=== PATIENT | male | born 1945 | race Caucasian/White ===

== ENCOUNTER 2020-08-04 08:54 | Inpatient (IN) | payer MEDICAID ==
[~2020-08-04] VITALS: Ht 165.1 cm; Wt 78.5 kg
[~2020-08-04 08:54] MED LIST: ALBU05 IH; ATOR40TA70 MT; FINA5TAB11 MT; FLUT1DIS3 IH; GLIP10TA10 PO; LEVO25TA7 MT; LOSA50TA41 MT; METF-416 PO; MOME13HF INH; TAMS0.4C31 PO
[2020-08-04] MEDS ORDERED: METHYLPREDNISOLONE SOD SUCC 125 MG/2 ML VIAL IV STA (09:09)
[2020-08-04] MEDS ORDERED: ALBUTEROL (0.083%) 2.5MG/3ML NEB HHN STA (09:09)
[2020-08-04] MEDS ORDERED: IPRATROPIUM BROMIDE (0.02%) 0.5MG/2.5ML NEB HHN STA (09:09)
[2020-08-04 09:31] LABS: BASOPHILS % 0.8 % (0.0-2.0); EOSINOPHILS % 9.9 % (0.0-5.0); HEMATOCRIT. 37.4 % (42.0-52.0); HEMOGLOBIN. 12.6 g/dL (14.0-18.0); MEAN CORPUSCULAR VOLUME 82.6 fL (80.0-94.0); MEAN PLATELET VOLUME 8.2 fl (7.4-10.4); MONOCYTES % 8.4 % (2.0-8.0); NEUTROPHILS % 41.9 % (40.0-76.0); PLATELET 169 x1000/uL (130-400); RED BLOOD CELL COUNT 4.52 mill/uL (4.7-6.1); RED CELL DISTRIBUTION WIDTH 14.9 % (11.6-14.6)
[2020-08-04 09:39] LABS: CHLORIDE 104 mEq/L (98-107)
[2020-08-04] MEDS ORDERED: MAGNESIUM 2 G PREMIX 50 ML IV STA (10:31)
[2020-08-04] MEDS ORDERED: LORAZEPAM 2MG/ML CPJ IV PRN (12:45)
[2020-08-04] MEDS ORDERED: CLONIDINE 0.1MG TABLET PO PRN (12:45)
[2020-08-04] MEDS ORDERED: LEVOTHYROXINE SODIUM 25MCG TABLET PO SCH (12:45)
[2020-08-04] MEDS ORDERED: ATORVASTATIN CALCIUM 40MG TABLET PO SCH (12:45)
[2020-08-04] MEDS ORDERED: HYDROCODONE/ACETAMINOPHEN 5/325MG TABLET PO PRN (12:45)
[2020-08-04] MEDS ORDERED: ACETAMINOPHEN 325MG TABLET PO PRN (12:45)
[2020-08-04] MEDS ORDERED: DOCUSATE SODIUM 100MG CAPSULE PO PRN (12:45)
[2020-08-04] MEDS ORDERED: IPRATROPIUM/ALBUTEROL 0.5-3(2.5)MG/3ML NEB HHN PRN (12:45)
[2020-08-04] MEDS ORDERED: GLIPIZIDE 10MG TABLET PO SCH (12:45)
[2020-08-04] MEDS ORDERED: MAGNESIUM/ALUMINUM HYDROXIDE/SIMETHICONE 30ML UDC PO PRN (12:45)
[2020-08-04] MEDS ORDERED: HYDROMORPHONE HCL/PF 2MG/ML CPJ IV PRN (12:45)
[2020-08-04] MEDS ORDERED: ONDANSETRON HCL 4MG/2ML INJ IV PRN (12:45)
[2020-08-04] MEDS: FINASTERIDE 5MG TABLET PO SCH (13:33)
[2020-08-04] MEDS: METHYLPREDNISOLONE SOD SUCC 40 MG/ML VIAL IV SCH ×2 (15:54→22:20)
[2020-08-04] MEDS: ENOXAPARIN 40MG/0.4ML SYR SUBCUT SCH (15:54)
[2020-08-04 16:00] VITALS: BP 161/77
[2020-08-04] MEDS: LOSARTAN POTASSIUM 50 MG TABLET PO SCH (16:04)
[2020-08-04 20:00] VITALS: BP 143/63
[2020-08-04] MEDS ORDERED: DEXTROSE 50% WATER 50ML SYRINGE IV PRN (20:15)
[2020-08-04] MEDS: BLOOD SUGAR DIAGNOSTIC STRIP TEST SCH (20:33)
[2020-08-04] MEDS: GUAIFENESIN 200MG/10ML SUGAR FREE UDC PO PRN (20:52)
[2020-08-04] MEDS: ATORVASTATIN CALCIUM 40MG TABLET PO SCH (20:52)
[2020-08-04] MEDS: TAMSULOSIN HCL 0.4MG SR CAPSULE PO SCH (20:53)
[2020-08-04] MEDS: INSULIN LISPRO 100 UNITS/ML SUBCUT SCH (20:59)
[2020-08-05] VITALS: BP 146/62
[2020-08-05] MEDS: IPRATROPIUM/ALBUTEROL 0.5-3(2.5)MG/3ML NEB HHN SCH ×5 (03:34→20:10)
[2020-08-05 04:00] VITALS: BP 125/58
[2020-08-05] MEDS: GUAIFENESIN 200MG/10ML SUGAR FREE UDC PO PRN (04:25)
[2020-08-05] MEDS: METHYLPREDNISOLONE SOD SUCC 40 MG/ML VIAL IV SCH ×3 (05:39→21:44)
[2020-08-05] MEDS: BLOOD SUGAR DIAGNOSTIC STRIP TEST SCH ×4 (06:14→20:36)
[2020-08-05 06:18] LABS: CHLORIDE 105 mEq/L (98-107)
[2020-08-05 06:19] LABS: BASOPHILS % 0.1 % (0.0-2.0); HEMATOCRIT. 36.2 % (42.0-52.0); HEMOGLOBIN. 11.8 g/dL (14.0-18.0); LYMPHOCYTES % 14.9 % (20.0-50.0); MEAN CORPUSCULAR HEMOGLOBIN 27.6 pg (28.0-32.0); MEAN CORPUSCULAR VOLUME 84.8 fL (80.0-94.0); MEAN PLATELET VOLUME 9.1 fl (7.4-10.4); MONOCYTES % 1.4 % (2.0-8.0); NEUTROPHILS % 83.6 % (40.0-76.0); PLATELET 174 x1000/uL (130-400); RED BLOOD CELL COUNT 4.27 mill/uL (4.7-6.1); RED CELL DISTRIBUTION WIDTH 15.1 % (11.6-14.6)
[2020-08-05] MEDS: GLIPIZIDE 10MG TABLET PO SCH (06:22)
[2020-08-05] MEDS: LEVOTHYROXINE SODIUM 25MCG TABLET PO SCH (06:22)
[2020-08-05 08:00] VITALS: BP 150/79
[2020-08-05] MEDS: FINASTERIDE 5MG TABLET PO SCH (08:39)
[2020-08-05] MEDS: ASPIRIN 81MG EC TABLET PO SCH (08:39)
[2020-08-05] MEDS: LOSARTAN POTASSIUM 50 MG TABLET PO SCH (08:39)
[2020-08-05] MEDS: ENOXAPARIN 40MG/0.4ML SYR SUBCUT SCH (08:40)
[2020-08-05] MEDS: INSULIN LISPRO 100 UNITS/ML SUBCUT SCH ×4 (08:41→20:35)
[2020-08-05 12:00] VITALS: BP 142/71
[2020-08-05 16:00] VITALS: BP 118/54
[2020-08-05 20:00] VITALS: BP 122/68
[2020-08-05] MEDS: GUAIFENESIN 600MG ER TABLET PO SCH (20:33)
[2020-08-05] MEDS: TAMSULOSIN HCL 0.4MG SR CAPSULE PO SCH (20:34)
[2020-08-05] MEDS: ATORVASTATIN CALCIUM 40MG TABLET PO SCH (20:34)
[2020-08-06] VITALS: BP 131/50
[2020-08-06] MEDS: IPRATROPIUM/ALBUTEROL 0.5-3(2.5)MG/3ML NEB HHN SCH ×3 (03:08→14:11)
[2020-08-06 04:00] VITALS: BP 150/62
[2020-08-06] MEDS: METHYLPREDNISOLONE SOD SUCC 40 MG/ML VIAL IV SCH ×2 (06:01→13:14)
[2020-08-06] MEDS: GLIPIZIDE 10MG TABLET PO SCH (06:02)
[2020-08-06] MEDS: LEVOTHYROXINE SODIUM 25MCG TABLET PO SCH (06:02)
[2020-08-06] MEDS: BLOOD SUGAR DIAGNOSTIC STRIP TEST SCH ×2 (06:34→11:45)
[2020-08-06] MEDS: INSULIN LISPRO 100 UNITS/ML SUBCUT SCH ×2 (06:42→13:08)
[2020-08-06 08:00] VITALS: BP 125/65
[2020-08-06] MEDS: FINASTERIDE 5MG TABLET PO SCH (09:12)
[2020-08-06] MEDS: ASPIRIN 81MG EC TABLET PO SCH (09:12)
[2020-08-06] MEDS: LOSARTAN POTASSIUM 50 MG TABLET PO SCH (09:12)
[2020-08-06] MEDS: GUAIFENESIN 600MG ER TABLET PO SCH (09:12)
[2020-08-06] MEDS: ENOXAPARIN 40MG/0.4ML SYR SUBCUT SCH (09:13)
[2020-08-06 12:00] VITALS: BP 131/68
[2020-08-06 14:14] VITALS: BP 131/68
== END 2020-08-06 15:25 | disposition home or self-care (01) | DRG 203 ==
LOC: ER 09:03 → 5WST 10:58
PROVIDERS: ADMIT Hospitalist; ATTEND Hospitalist
DX: M94.0 Chondrocostal junction syndrome [Tietze] (principal); J96.01 Acute respiratory failure with hypoxia; E11.65 Type 2 diabetes mellitus with hyperglycemia; R65.10 Systemic inflammatory response syndrome (SIRS) of non-infectious origin without acute organ dysfunction; J44.1 Chronic obstructive pulmonary disease with (acute) exacerbation; R07.89 Other chest pain; Z99.81 Dependence on supplemental oxygen; D64.9 Anemia, unspecified; I10 Essential (primary) hypertension; Z85.46 Personal history of malignant neoplasm of prostate; Z87.891 Personal history of nicotine dependence; Z79.899 Other long term (current) drug therapy
CPT/HCPCS: 36415; 71045; 80053; 82962; 83036; 83880; 84484; 85025; 93005; 94640; 94644; 99285; J1650; J1815; J2920; J2930; J3475

== ENCOUNTER 2021-12-27 05:14 | Inpatient (IN) | payer MEDICAID ==
[~2021-12-27] VITALS: Ht 167.6 cm; Wt 90.7 kg
[~2021-12-27 05:14] MED LIST changes: +ATOR-2 PO; +AZIT250T12 PO; +BENZ100C86 PO; +CETI10TA6 PO; +FURO20TA4 PO; +FURO40TA5 PO; +P20 PO; +ROFL500T PO; +SPIR25TA PO; +TAMSULOSIN
[2021-12-27] MEDS ORDERED: IPRATROPIUM BROMIDE (0.02%) 0.5MG/2.5ML NEB HHN STA (05:27)
[2021-12-27] MEDS ORDERED: ALBUTEROL (0.083%) 2.5MG/3ML NEB HHN STA (05:27)
[2021-12-27] MEDS ORDERED: METHYLPREDNISOLONE SOD SUCC 125 MG/2 ML VIAL IV STA (05:27)
[2021-12-27] MEDS ORDERED: MAGNESIUM 2 G PREMIX 50 ML IV STA (05:27)
[2021-12-27 05:56] LABS: BASOPHILS % 0.3 % (0.0-2.0); EOSINOPHILS % 1.1 % (0.0-5.0); HEMATOCRIT. 39.4 % (42.0-52.0); HEMOGLOBIN. 13.1 g/dL (14.0-18.0); LYMPHOCYTES % 22.2 % (20.0-50.0); MEAN CORPUSCULAR VOLUME 81.2 fL (80.0-94.0); MEAN PLATELET VOLUME 8.2 fl (7.4-10.4); MONOCYTES % 6.7 % (2.0-8.0); NEUTROPHILS % 69.7 % (40.0-76.0); PLATELET 172 x1000/uL (130-400); RED BLOOD CELL COUNT 4.85 mill/uL (4.7-6.1); RED CELL DISTRIBUTION WIDTH 15.1 % (11.6-14.6)
[2021-12-27 06:27] LABS: CHLORIDE 103 mEq/L (98-107)
[2021-12-27] MEDS ORDERED: LEVOFLOXACIN 500MG PREMIX 100 ML IV ONE (07:15)
[2021-12-27 10:37] VITALS: BP 159/73
[2021-12-27] MEDS ORDERED: IPRATROPIUM/ALBUTEROL 0.5-3(2.5)MG/3ML NEB NEB PRN (11:30)
[2021-12-27] MEDS ORDERED: DEXTROSE 50% WATER 50ML SYRINGE IV PRN (11:30)
[2021-12-27] MEDS ORDERED: MAGNESIUM/ALUMINUM HYDROXIDE/SIMETHICONE 30ML UDC PO PRN (11:30)
[2021-12-27] MEDS ORDERED: ONDANSETRON HCL 4MG/2ML INJ IV PRN (11:30)
[2021-12-27] MEDS ORDERED: ZOLPIDEM TARTRATE 5MG TABLET PO PRN (11:30)
[2021-12-27] MEDS ORDERED: NITROGLYCERIN 0.4MG TABLET SL SL PRN (11:30)
[2021-12-27] MEDS ORDERED: CLONIDINE 0.1MG TABLET PO PRN (11:30)
[2021-12-27] MEDS ORDERED: DOCUSATE SODIUM 100MG CAPSULE PO PRN (11:30)
[2021-12-27] MEDS ORDERED: ACETAMINOPHEN 325MG TABLET PO PRN ×2 (11:30)
[2021-12-27] MEDS ORDERED: NA PHOS,M-B/NA PHOS,DI-BA ENEMA 118ML PR PRN (11:30)
[2021-12-27 12:00] VITALS: BP 145/58
[2021-12-27] MEDS: AMLODIPINE 10MG TABLET PO SCH (12:37)
[2021-12-27] MEDS: ASPIRIN 325MG EC TABLET PO SCH (12:38)
[2021-12-27] MEDS: ENOXAPARIN 40MG/0.4ML SYR SUBCUT SCH (12:41)
[2021-12-27] MEDS: BLOOD SUGAR DIAGNOSTIC STRIP TEST SCH ×3 (12:54→20:36)
[2021-12-27] MEDS: METHYLPREDNISOLONE SOD SUCC 125 MG/2 ML VIAL IV SCH ×2 (14:33→21:30)
[2021-12-27] MEDS: INSULIN LISPRO 100 UNITS/ML SUBCUT SCH ×3 (14:34→20:39)
[2021-12-27 14:35] LABS: ETHANOL BLOOD < 10 mg/dL; T4 FREE 0.87 ng/dL (0.76-1.46); TOTAL IRON BINDING CAPACITY 352 ug/dL (250-450)
[2021-12-27 15:12] LABS: FOLIC ACID (FOLATE) SERUM 9.5 ng/mL (>5.38)
[2021-12-27] MEDS: IPRATROPIUM/ALBUTEROL 0.5-3(2.5)MG/3ML NEB HHN SCH ×2 (15:54→22:10)
[2021-12-27 16:00] VITALS: BP 142/60
[2021-12-27 17:08] LABS: CREATINE KINASE MB FRACTION 1.9 ng/mL (0.5-3.6)
[2021-12-27 17:51] LABS: BG BASE EXCESS 1.4 mmol/L (-2.0-2.0); BG CARBOXYHEMOGLOBIN 0.3 % (0.5-1.5); BG DEOXYHEMOGLOBIN 5.9 % (0.0-5.0); BG FRACTION INSPIRED OXYGEN 32; BG METHEMOGLOBIN 0.3 % (0.0-1.5); BG OXYGEN SATURATION 94.1 % (92.0-98.5); BG OXYHEMOGLOBIN 93.5 % (94.0-97.0); BG PCO2 36.6 mmHg (35.0-45.0); BG PH 7.453 (7.350-7.450); BG PO2 71.4 mmHg (75.0-100.0); BG SAMPLE SITE LEFT RADIAL; BG TOTAL HEMOGLOBIN 13.5 g/dL (12.0-18.0); BG VENT MODE NASAL CANNULA
[2021-12-27 20:00] VITALS: BP 120/51
[2021-12-27] MEDS: FAMOTIDINE 20MG TABLET PO SCH (20:36)
[2021-12-27] MEDS: GUAIFENESIN 600MG ER TABLET PO SCH (20:36)
[2021-12-27 23:29] LABS: CREATINE KINASE MB FRACTION 1.9 ng/mL (0.5-3.6)
[2021-12-28] VITALS: BP_SYST 124; BP_SYST 129; BP_DIAS 58; BP_DIAS 61
[2021-12-28] MEDS: IPRATROPIUM/ALBUTEROL 0.5-3(2.5)MG/3ML NEB HHN SCH ×6 (01:45→20:57)
[2021-12-28 04:00] VITALS: BP 124/52
[2021-12-28] MEDS: METHYLPREDNISOLONE SOD SUCC 125 MG/2 ML VIAL IV SCH ×2 (05:29→14:00)
[2021-12-28] MEDS: INSULIN LISPRO 100 UNITS/ML SUBCUT SCH ×4 (06:52→20:57)
[2021-12-28] MEDS: BLOOD SUGAR DIAGNOSTIC STRIP TEST SCH ×4 (06:52→21:03)
[2021-12-28 07:50] LABS: CHLORIDE 103 mEq/L (98-107); HEMATOCRIT. 35.5 % (42.0-52.0); HEMOGLOBIN. 11.9 g/dL (14.0-18.0); MEAN CORPUSCULAR HEMOGLOBIN 27.1 pg (28.0-32.0); MEAN CORPUSCULAR VOLUME 80.9 fL (80.0-94.0); MEAN PLATELET VOLUME 8.5 fl (7.4-10.4); PLATELET 178 x1000/uL (130-400); RED BLOOD CELL COUNT 4.39 mill/uL (4.7-6.1); RED CELL DISTRIBUTION WIDTH 14.8 % (11.6-14.6)
[2021-12-28 08:00] VITALS: BP 143/61
[2021-12-28 08:01] LABS: HDL CHOLESTEROL 57 mg/dL (40-59); LDL CHOLESTEROL 85 mg/dL (5-100); PHOSPHORUS 3.3 mg/dL (2.5-4.9)
[2021-12-28] MEDS: LEVOFLOXACIN 500MG PREMIX 100 ML IV SCH (09:12)
[2021-12-28] MEDS: GUAIFENESIN 600MG ER TABLET PO SCH ×2 (09:13→20:45)
[2021-12-28] MEDS: AMLODIPINE 10MG TABLET PO SCH (09:13)
[2021-12-28] MEDS: FAMOTIDINE 20MG TABLET PO SCH ×2 (09:13→20:45)
[2021-12-28] MEDS: ENOXAPARIN 40MG/0.4ML SYR SUBCUT SCH (09:13)
[2021-12-28] MEDS: ASPIRIN 325MG EC TABLET PO SCH (09:14)
[2021-12-28] MEDS: KETOROLAC 15MG/ML VIAL IV PRN (09:15)
[2021-12-28 12:00] VITALS: BP 132/69
[2021-12-28 13:16] LABS: PLATELET ESTIMATE NORMAL
[2021-12-28 16:00] VITALS: BP 135/64
[2021-12-28] MEDS: BENZONATATE 100MG CAPSULE PO PRN (17:20)
[2021-12-28] MEDS: GUAIFENESIN 200MG/10ML SUGAR FREE UDC PO PRN (17:20)
[2021-12-28 20:00] VITALS: BP 123/61
[2021-12-28] MEDS: METHYLPREDNISOLONE SOD SUCC 40 MG/ML VIAL IV SCH (21:10)
[2021-12-28] MEDS ORDERED: INSULIN GLARGINE 100 UNITS/ML SUBCUT SCH (22:00)
[2021-12-29] VITALS: BP 117/64
[2021-12-29] MEDS: IPRATROPIUM/ALBUTEROL 0.5-3(2.5)MG/3ML NEB HHN SCH ×5 (00:57→20:50)
[2021-12-29 04:00] VITALS: BP 139/60
[2021-12-29] MEDS: METHYLPREDNISOLONE SOD SUCC 40 MG/ML VIAL IV SCH ×3 (05:18→21:04)
[2021-12-29] MEDS: BLOOD SUGAR DIAGNOSTIC STRIP TEST SCH ×4 (06:54→21:02)
[2021-12-29] MEDS: INSULIN LISPRO 100 UNITS/ML SUBCUT SCH ×7 (06:57→21:03)
[2021-12-29 08:00] VITALS: BP 128/63
[2021-12-29] MEDS: BENZONATATE 100MG CAPSULE PO PRN ×3 (08:43→18:03)
[2021-12-29] MEDS: FAMOTIDINE 20MG TABLET PO SCH ×2 (08:43→21:02)
[2021-12-29] MEDS: AMLODIPINE 10MG TABLET PO SCH (08:43)
[2021-12-29] MEDS: ENOXAPARIN 40MG/0.4ML SYR SUBCUT SCH (08:43)
[2021-12-29] MEDS: GUAIFENESIN 600MG ER TABLET PO SCH ×2 (08:44→21:02)
[2021-12-29] MEDS: KETOROLAC 15MG/ML VIAL IV PRN (08:44)
[2021-12-29] MEDS: LEVOFLOXACIN 500MG PREMIX 100 ML IV SCH (08:44)
[2021-12-29] MEDS: ASPIRIN 325MG EC TABLET PO SCH (08:49)
[2021-12-29] MEDS ORDERED: THROAT LOZENGES-BENZOCAINE/MENTH/CETYLPYRD CL LOZENGES MM PRN (11:15)
[2021-12-29 12:00] VITALS: BP 120/63
[2021-12-29 16:00] VITALS: BP 123/61
[2021-12-29] MEDS: GUAIFENESIN 200MG/10ML SUGAR FREE UDC PO PRN (18:03)
[2021-12-29 20:00] VITALS: BP 116/45
[2021-12-29] MEDS ORDERED: INSULIN GLARGINE 100 UNITS/ML SUBCUT SCH (22:00)
[2021-12-30] VITALS: BP 112/39
[2021-12-30] MEDS: IPRATROPIUM/ALBUTEROL 0.5-3(2.5)MG/3ML NEB HHN SCH ×4 (00:30→11:54)
[2021-12-30 03:30] VITALS: BP 122/52
[2021-12-30] MEDS: METHYLPREDNISOLONE SOD SUCC 40 MG/ML VIAL IV SCH ×2 (06:31→13:46)
[2021-12-30] MEDS: BLOOD SUGAR DIAGNOSTIC STRIP TEST SCH ×2 (06:32→12:20)
[2021-12-30 08:00] VITALS: BP 127/53
[2021-12-30 08:05] LABS: HEMOGLOBIN 12.2 g/dL (14.0-18.0); MEAN CORPUSCULAR HEMOGLOBIN 26.9 pg (28.0-32.0); MEAN CORPUSCULAR VOLUME 81.8 fL (80.0-94.0); PLATELET 159 x1000/uL (130-400); RED BLOOD CELL COUNT 4.52 mill/uL (4.7-6.1); RED CELL DISTRIBUTION WIDTH 15.4 % (11.6-14.6)
[2021-12-30 08:22] LABS: CHLORIDE 104 mEq/L (98-107)
[2021-12-30] MEDS: FAMOTIDINE 20MG TABLET PO SCH (08:42)
[2021-12-30] MEDS: GUAIFENESIN 600MG ER TABLET PO SCH (08:42)
[2021-12-30] MEDS: ASPIRIN 325MG EC TABLET PO SCH (08:42)
[2021-12-30] MEDS: AMLODIPINE 10MG TABLET PO SCH (08:42)
[2021-12-30] MEDS: INSULIN LISPRO 100 UNITS/ML SUBCUT SCH ×5 (08:44→13:46)
[2021-12-30] MEDS ORDERED: ENOXAPARIN 30MG/0.3ML SYR SUBCUT SCH (09:00)
[2021-12-30] MEDS: LEVOFLOXACIN 500MG PREMIX 100 ML IV SCH (09:15)
[2021-12-30] MEDS ORDERED: TIOT18CA3 INH (10:51)
[2021-12-30] MEDS ORDERED: ALBU6.7H9 INH (10:51)
[2021-12-30] MEDS ORDERED: AZIT500T3 MT (10:51)
[2021-12-30] MEDS ORDERED: P20 PO (10:51)
[2021-12-30 12:00] VITALS: BP 139/65
[2021-12-30 13:30] VITALS: BP 139/65
== END 2021-12-30 14:10 | disposition home or self-care (01) | DRG 140 ==
LOC: ER 05:14 → 6WST 08:33 → ENRESERV 09:10
PROVIDERS: ADMIT Internal Medicine; ATTEND Internal Medicine
DX: J44.1 Chronic obstructive pulmonary disease with (acute) exacerbation (principal); J96.21 Acute and chronic respiratory failure with hypoxia; Z99.81 Dependence on supplemental oxygen; E11.65 Type 2 diabetes mellitus with hyperglycemia; I10 Essential (primary) hypertension; E78.5 Hyperlipidemia, unspecified; E78.00 Pure hypercholesterolemia, unspecified; Z87.891 Personal history of nicotine dependence; Z79.4 Long term (current) use of insulin; Z85.46 Personal history of malignant neoplasm of prostate
CPT/HCPCS: 36415; 36600; 71045; 80048; 80053; 80061; 80320; 82375; 82550; 82553; 82607; 82746; 82805; 82962; 83036; 83540; 83550; 83735; 83880; 84100; 84145; 84439; 84443; 84484; 85025; 85027; 93005; 93970; 94640; 99285; J1650; J1815; J1885; J1956; J2920; J2930; J3475; G0480

== ENCOUNTER 2022-01-19 14:26 | Inpatient (IN) | payer MEDICAID ==
[~2022-01-19] VITALS: Ht 157.5 cm; Wt 72.6 kg
[~2022-01-19 14:26] MED LIST changes: -ALBU05 IH; +ALBU6.7H3 INH; -ATOR-2 PO; -AZIT250T12 PO; +AZIT500T3 MT; -BENZ100C86 PO; -CETI10TA6 PO; -FLUT1DIS3 IH; -FURO20TA4 PO; -FURO40TA5 PO; -MOME13HF INH; +MOME13HF11 INH; -SPIR25TA PO; -TAMS0.4C31 PO; -TAMSULOSIN; +TIOT18CA3 INH
[2022-01-19] MEDS ORDERED: METHYLPREDNISOLONE SOD SUCC 125 MG/2 ML VIAL IV STA (18:10)
[2022-01-19] MEDS ORDERED: ALBUTEROL (0.083%) 2.5MG/3ML NEB HHN STA (18:10)
[2022-01-19] MEDS ORDERED: IPRATROPIUM BROMIDE (0.02%) 0.5MG/2.5ML NEB HHN STA (18:10)
[2022-01-19] MEDS ORDERED: SODIUM CHLORIDE 0.9% 1000ML BAG (SEPSIS BOLUS) IV ONE (18:15)
[2022-01-19 18:43] LABS: BASOPHILS % 1.9 % (0.0-2.0); EOSINOPHILS % 4.7 % (0.0-5.0); HEMATOCRIT. 33.3 % (42.0-52.0); HEMOGLOBIN. 11.3 g/dL (14.0-18.0); LYMPHOCYTES % 23.7 % (20.0-50.0); MEAN CORPUSCULAR HEMOGLOBIN 27.5 pg (28.0-32.0); MEAN CORPUSCULAR VOLUME 81.2 fL (80.0-94.0); MONOCYTES % 11.1 % (2.0-8.0); NEUTROPHILS % 58.6 % (40.0-76.0); PLATELET 274 x1000/uL (130-400); RED CELL DISTRIBUTION WIDTH 16.6 % (11.6-14.6)
[2022-01-19 18:51] LABS: CHLORIDE 93 mEq/L (98-107)
[2022-01-19 19:45] LABS: CLARITY URINE TURBID (CLEAR); COLOR URINE YELLOW (YELLOW); KETONES URINE 1+ (NEGATIVE); LEUKOCYTE ESTERASE URINE NEGATIVE (NEGATIVE); NITRITE URINE NEGATIVE (NEGATIVE); OCCULT BLOOD URINE NEGATIVE (NEGATIVE); PH URINE 8.5 (4.5-8.0); PROTEIN URINE 1+ (NEGATIVE); SPECIFIC GRAVITY URINE 1.045 (1.005-1.030)
[2022-01-19] MEDS ORDERED: MORPHINE SULFATE 4 MG/ML CPJ (NOT FOR IM USE) IV STA (21:28)
[2022-01-19] MEDS ORDERED: ONDANSETRON HCL 4MG/2ML INJ IV STA (21:28)
[2022-01-19] MEDS ORDERED: ASPIRIN 81MG TABLET PO ONE (21:30)
[2022-01-20] MEDS ORDERED: DOCUSATE SODIUM 100MG CAPSULE PO PRN (01:45)
[2022-01-20] MEDS ORDERED: ACETAMINOPHEN 325MG TABLET PO PRN (01:45)
[2022-01-20] MEDS ORDERED: GUAIFENESIN 200MG/10ML SUGAR FREE UDC PO PRN (01:45)
[2022-01-20] MEDS ORDERED: ONDANSETRON HCL 4MG/2ML INJ IV PRN (01:45)
[2022-01-20] MEDS ORDERED: MAGNESIUM/ALUMINUM HYDROXIDE/SIMETHICONE 30ML UDC PO PRN (01:45)
[2022-01-20] MEDS: IPRATROPIUM/ALBUTEROL 0.5-3(2.5)MG/3ML NEB HHN PRN ×2 (02:18→22:26)
[2022-01-20] MEDS ORDERED: DEXTROSE 50% WATER 50ML SYRINGE IV PRN ×2 (03:45→12:45)
[2022-01-20] MEDS: BLOOD SUGAR DIAGNOSTIC STRIP TEST SCH ×4 (06:41→21:34)
[2022-01-20] MEDS ORDERED: INSULIN LISPRO 100 UNITS/ML SUBCUT SCH (07:00)
[2022-01-20 08:00] VITALS: BP 149/71
[2022-01-20 10:23] VITALS: BP 149/71
[2022-01-20] MEDS: PANTOPRAZOLE SODIUM 40 MG/VIAL IV SCH (10:29)
[2022-01-20] MEDS: FINASTERIDE 5MG TABLET PO SCH (10:30)
[2022-01-20] MEDS: ENOXAPARIN 40MG/0.4ML SYR SUBCUT SCH (10:30)
[2022-01-20] MEDS: TAMSULOSIN HCL 0.4MG SR CAPSULE PO SCH (10:31)
[2022-01-20 12:00] VITALS: BP 155/71
[2022-01-20] MEDS: INSULIN LISPRO 100 UNITS/ML SUBCUT SCH ×3 (13:07→21:42)
[2022-01-20] MEDS ORDERED: CYCLOBENZAPRINE 10MG TABLET PO SCH (14:00)
[2022-01-20 15:27] LABS: CHLORIDE 96 mEq/L (98-107)
[2022-01-20 15:48] LABS: HDL CHOLESTEROL 38 mg/dL (40-59); LDL CHOLESTEROL 76 mg/dL (5-100); T4 FREE 1.16 ng/dL (0.76-1.46); TOTAL IRON BINDING CAPACITY 200 ug/dL (250-450)
[2022-01-20 16:00] VITALS: BP 157/62
[2022-01-20] MEDS: KETOROLAC 15MG/ML VIAL IV PRN (17:03)
[2022-01-20 20:00] VITALS: BP 131/50
[2022-01-20] MEDS ORDERED: LORAZEPAM 1MG TABLET PO NR (20:30)
[2022-01-20] MEDS ORDERED: DIPHENHYDRAMINE 50MG/ML VIAL IV NR (20:30)
[2022-01-20] MEDS: BACLOFEN 10MG TABLET PO SCH (21:40)
[2022-01-20] MEDS: ATORVASTATIN CALCIUM 40MG TABLET PO SCH (21:40)
[2022-01-20] MEDS: OXCARBAZEPINE 300MG TABLET PO SCH (21:41)
[2022-01-21] VITALS: BP 122/46
[2022-01-21 04:00] VITALS: BP_SYST 114; BP_SYST 122; BP_DIAS 48; BP_DIAS 84
[2022-01-21] MEDS: BLOOD SUGAR DIAGNOSTIC STRIP TEST SCH ×4 (06:20→21:56)
[2022-01-21] MEDS: INSULIN LISPRO 100 UNITS/ML SUBCUT SCH ×4 (06:20→21:56)
[2022-01-21 08:00] VITALS: BP_SYST 15; BP_SYST 158; BP_DIAS 71
[2022-01-21] MEDS ORDERED: INFLUENZA VACCINE 05/PF 0.5 ML SYRINGE IM ONE (09:00)
[2022-01-21] MEDS: TAMSULOSIN HCL 0.4MG SR CAPSULE PO SCH (09:00)
[2022-01-21] MEDS: OXCARBAZEPINE 300MG TABLET PO SCH ×2 (09:00→21:55)
[2022-01-21] MEDS: ENOXAPARIN 40MG/0.4ML SYR SUBCUT SCH (09:00)
[2022-01-21] MEDS: BACLOFEN 10MG TABLET PO SCH ×2 (09:00→17:58)
[2022-01-21] MEDS: PANTOPRAZOLE SODIUM 40 MG/VIAL IV SCH (09:00)
[2022-01-21] MEDS: FINASTERIDE 5MG TABLET PO SCH (09:00)
[2022-01-21] MEDS: IPRATROPIUM/ALBUTEROL 0.5-3(2.5)MG/3ML NEB HHN PRN ×2 (09:05→21:15)
[2022-01-21 12:00] VITALS: BP 129/56
[2022-01-21] MEDS: KETOROLAC 15MG/ML VIAL IV PRN (14:36)
[2022-01-21 20:00] VITALS: BP 137/67
[2022-01-21] MEDS: ATORVASTATIN CALCIUM 40MG TABLET PO SCH (21:55)
[2022-01-22] VITALS: BP 145/62
[2022-01-22] MEDS: IPRATROPIUM/ALBUTEROL 0.5-3(2.5)MG/3ML NEB HHN PRN ×3 (01:05→22:54)
[2022-01-22] MEDS: KETOROLAC 15MG/ML VIAL IV PRN (02:37)
[2022-01-22 04:00] VITALS: BP 131/64
[2022-01-22] MEDS: BLOOD SUGAR DIAGNOSTIC STRIP TEST SCH ×4 (06:28→21:26)
[2022-01-22] MEDS: INSULIN LISPRO 100 UNITS/ML SUBCUT SCH ×4 (06:49→21:21)
[2022-01-22 08:00] VITALS: BP 172/69
[2022-01-22] MEDS ORDERED: AMLODIPINE 10MG TABLET PO NR (08:45)
[2022-01-22 08:53] LABS: HEMATOCRIT 29.8 % (42.0-52.0); MEAN CORPUSCULAR HEMOGLOBIN 27.6 pg (28.0-32.0); MEAN CORPUSCULAR VOLUME 82.5 fL (80.0-94.0); PLATELET 272 x1000/uL (130-400); RED BLOOD CELL COUNT 3.61 mill/uL (4.7-6.1); RED CELL DISTRIBUTION WIDTH 16.8 % (11.6-14.6)
[2022-01-22] MEDS ORDERED: GADOTERATE MEGLUMINE 5 MMOL/10 ML VIAL IV ONE (08:56)
[2022-01-22] MEDS: FINASTERIDE 5MG TABLET PO SCH (08:57)
[2022-01-22] MEDS: OXCARBAZEPINE 300MG TABLET PO SCH ×2 (08:57→21:26)
[2022-01-22] MEDS: TAMSULOSIN HCL 0.4MG SR CAPSULE PO SCH (08:57)
[2022-01-22] MEDS: BACLOFEN 10MG TABLET PO SCH ×2 (08:57→17:00)
[2022-01-22] MEDS: ENOXAPARIN 40MG/0.4ML SYR SUBCUT SCH (08:58)
[2022-01-22] MEDS: PANTOPRAZOLE SODIUM 40 MG/VIAL IV SCH (08:58)
[2022-01-22 09:15] LABS: CHLORIDE 105 mEq/L (98-107)
[2022-01-22] MEDS ORDERED: NITROGLYCERIN 0.4MG TABLET SL SL PRN (11:15)
[2022-01-22 12:00] VITALS: BP 148/68
[2022-01-22 13:17] LABS: CHLORIDE 101 mEq/L (98-107)
[2022-01-22 16:00] VITALS: BP 118/62
[2022-01-22] MEDS ORDERED: ASPIRIN 325MG EC TABLET PO NR (16:15)
[2022-01-22 17:36] LABS: VITAMIN B12 SERUM 656 pg/mL (211-911)
[2022-01-22 20:00] VITALS: BP 131/68
[2022-01-22 20:59] LABS: CREATINE KINASE MB FRACTION 1.9 ng/mL (0.5-3.6)
[2022-01-22] MEDS: INSULIN GLARGINE 100 UNITS/ML SUBCUT SCH (21:24)
[2022-01-22] MEDS: ATORVASTATIN CALCIUM 40MG TABLET PO SCH (21:26)
[2022-01-22] MEDS ORDERED: LORAZEPAM 1MG TABLET PO NR (23:00)
[2022-01-23] VITALS (7 sets, daily range): BP systolic 124–144; BP diastolic 52–67
[2022-01-23 00:48] LABS: CREATINE KINASE MB FRACTION 1.5 ng/mL (0.5-3.6)
[2022-01-23 06:24] LABS: HEMOGLOBIN 10.4 g/dL (14.0-18.0); MEAN CORPUSCULAR HEMOGLOBIN 28.1 pg (28.0-32.0); PLATELET 258 x1000/uL (130-400); RED BLOOD CELL COUNT 3.71 mill/uL (4.7-6.1); RED CELL DISTRIBUTION WIDTH 16.3 % (11.6-14.6)
[2022-01-23] MEDS: INSULIN LISPRO 100 UNITS/ML SUBCUT SCH ×4 (06:25→22:04)
[2022-01-23 06:38] LABS: CHLORIDE 105 mEq/L (98-107)
[2022-01-23] MEDS: IPRATROPIUM/ALBUTEROL 0.5-3(2.5)MG/3ML NEB HHN PRN ×2 (07:32→19:53)
[2022-01-23] MEDS: BLOOD SUGAR DIAGNOSTIC STRIP TEST SCH ×4 (07:36→21:00)
[2022-01-23] MEDS: BACLOFEN 10MG TABLET PO SCH ×2 (08:30→17:30)
[2022-01-23] MEDS: FINASTERIDE 5MG TABLET PO SCH (08:30)
[2022-01-23] MEDS: ENOXAPARIN 40MG/0.4ML SYR SUBCUT SCH (08:30)
[2022-01-23] MEDS: PANTOPRAZOLE SODIUM 40 MG/VIAL IV SCH (08:30)
[2022-01-23] MEDS: TAMSULOSIN HCL 0.4MG SR CAPSULE PO SCH (08:31)
[2022-01-23] MEDS: OXCARBAZEPINE 300MG TABLET PO SCH ×2 (08:36→22:01)
[2022-01-23] MEDS: ATORVASTATIN CALCIUM 40MG TABLET PO SCH (22:01)
[2022-01-23] MEDS: GUAIFENESIN-DM 200MG-20MG/10ML UDC PO PRN (22:01)
[2022-01-23] MEDS: INSULIN GLARGINE 100 UNITS/ML SUBCUT SCH (22:05)
[2022-01-24] VITALS: BP 160/76
[2022-01-24] MEDS ORDERED: REGADENOSON 0.4 MG/5 ML IV NR (00:15)
[2022-01-24 00:29] VITALS: BP 160/76
[2022-01-24 04:00] VITALS: BP 149/71
[2022-01-24 06:14] LABS: HEMATOCRIT 29.9 % (42.0-52.0); HEMOGLOBIN 10.2 g/dL (14.0-18.0); MEAN CORPUSCULAR HEMOGLOBIN 27.8 pg (28.0-32.0); MEAN CORPUSCULAR VOLUME 81.3 fL (80.0-94.0); PLATELET 259 x1000/uL (130-400); RED BLOOD CELL COUNT 3.68 mill/uL (4.7-6.1); RED CELL DISTRIBUTION WIDTH 16.4 % (11.6-14.6)
[2022-01-24] MEDS: INSULIN LISPRO 100 UNITS/ML SUBCUT SCH ×4 (07:14→21:34)
[2022-01-24 07:48] LABS: CHLORIDE 99 mEq/L (98-107)
[2022-01-24 08:00] VITALS: BP 143/74
[2022-01-24] MEDS: PANTOPRAZOLE SODIUM 40 MG/VIAL IV SCH (09:06)
[2022-01-24] MEDS: IPRATROPIUM/ALBUTEROL 0.5-3(2.5)MG/3ML NEB HHN PRN ×2 (09:35→21:42)
[2022-01-24] MEDS: BLOOD SUGAR DIAGNOSTIC STRIP TEST SCH ×3 (11:40→21:00)
[2022-01-24] MEDS: GUAIFENESIN-DM 200MG-20MG/10ML UDC PO PRN (14:52)
[2022-01-24] MEDS: OXCARBAZEPINE 300MG TABLET PO SCH ×2 (14:52→21:09)
[2022-01-24] MEDS: BACLOFEN 10MG TABLET PO SCH ×2 (14:53→16:26)
[2022-01-24] MEDS: FINASTERIDE 5MG TABLET PO SCH (14:53)
[2022-01-24] MEDS: TAMSULOSIN HCL 0.4MG SR CAPSULE PO SCH (14:53)
[2022-01-24] MEDS: ENOXAPARIN 40MG/0.4ML SYR SUBCUT SCH (14:55)
[2022-01-24 16:00] VITALS: BP 134/67
[2022-01-24 20:00] VITALS: BP 150/69
[2022-01-24] MEDS: ATORVASTATIN CALCIUM 40MG TABLET PO SCH (21:09)
[2022-01-24] MEDS: INSULIN GLARGINE 100 UNITS/ML SUBCUT SCH (21:31)
[2022-01-25] VITALS: BP 119/41
[2022-01-25 04:00] VITALS: BP 142/61
[2022-01-25] MEDS: BLOOD SUGAR DIAGNOSTIC STRIP TEST SCH ×2 (06:19→11:42)
[2022-01-25] MEDS: INSULIN LISPRO 100 UNITS/ML SUBCUT SCH ×2 (07:10→12:15)
[2022-01-25 08:00] VITALS: BP 137/62
[2022-01-25 08:23] LABS: HEMATOCRIT 30.1 % (42.0-52.0); HEMOGLOBIN 10.2 g/dL (14.0-18.0); MEAN CORPUSCULAR HEMOGLOBIN 27.9 pg (28.0-32.0); MEAN CORPUSCULAR VOLUME 82.2 fL (80.0-94.0); PLATELET 229 x1000/uL (130-400); RED BLOOD CELL COUNT 3.66 mill/uL (4.7-6.1); RED CELL DISTRIBUTION WIDTH 16.9 % (11.6-14.6)
[2022-01-25] MEDS: FINASTERIDE 5MG TABLET PO SCH (08:57)
[2022-01-25] MEDS: BACLOFEN 10MG TABLET PO SCH (08:57)
[2022-01-25] MEDS: ENOXAPARIN 40MG/0.4ML SYR SUBCUT SCH (08:58)
[2022-01-25] MEDS: TAMSULOSIN HCL 0.4MG SR CAPSULE PO SCH (08:58)
[2022-01-25] MEDS: OXCARBAZEPINE 300MG TABLET PO SCH (08:58)
[2022-01-25] MEDS ORDERED: FAMOTIDINE 20MG/2ML VIAL IV SCH (09:00)
[2022-01-25 09:06] LABS: CHLORIDE 105 mEq/L (98-107)
[2022-01-25 12:00] VITALS: BP 125/54
[2022-01-25] MEDS: IPRATROPIUM/ALBUTEROL 0.5-3(2.5)MG/3ML NEB HHN PRN (13:41)
[2022-01-25 14:15] VITALS: BP 125/54
== END 2022-01-25 15:05 | disposition home health service (06) | DRG 347 ==
LOC: ER 14:26 → MICUSO 23:36 → 7EST 01-20 09:11
PROVIDERS: ADMIT Hospitalist; ATTEND Hospitalist
PROC: 4A00X4Z Measurement of Central Nervous Electrical Activity, External Approach (ICD-10-PCS; principal; 2022-01-21)
PROC: 4A02XM4 Measurement of Cardiac Total Activity, External Approach (ICD-10-PCS; 2022-01-24)
PROC: 3E033HZ Introduction of Radioactive Substance into Peripheral Vein, Percutaneous Approach (ICD-10-PCS; 2022-01-24)
DX: M48.02 Spinal stenosis, cervical region (principal); I27.20 Pulmonary hypertension, unspecified; E87.1 Hypo-osmolality and hyponatremia; D63.8 Anemia in other chronic diseases classified elsewhere; G95.29 Other cord compression; I50.32 Chronic diastolic (congestive) heart failure; I48.20 Chronic atrial fibrillation, unspecified; I11.0 Hypertensive heart disease with heart failure; G83.21 Monoplegia of upper limb affecting right dominant side; Z20.822 Contact with and (suspected) exposure to COVID-19; J44.1 Chronic obstructive pulmonary disease with (acute) exacerbation; R53.1 Weakness; D72.819 Decreased white blood cell count, unspecified; E03.9 Hypothyroidism, unspecified; E11.65 Type 2 diabetes mellitus with hyperglycemia; I07.1 Rheumatic tricuspid insufficiency; R62.7 Adult failure to thrive; R56.9 Unspecified convulsions; M48.07 Spinal stenosis, lumbosacral region; G44.209 Tension-type headache, unspecified, not intractable; E78.5 Hyperlipidemia, unspecified; Z99.81 Dependence on supplemental oxygen; Z87.891 Personal history of nicotine dependence; Z92.3 Personal history of irradiation; Z68.29 Body mass index [BMI] 29.0-29.9, adult; Z85.46 Personal history of malignant neoplasm of prostate; Z79.899 Other long term (current) drug therapy; Z92.21 Personal history of antineoplastic chemotherapy; W19.XXXA Unspecified fall, initial encounter; Y92.89 Other specified places as the place of occurrence of the external cause; Y99.8 Other external cause status; Y93.89 Activity, other specified; R07.89 Other chest pain
CPT/HCPCS: 36415; 70551; 70552; 71045; 72141; 72142; 72146; 72147; 72148; 73221; 78452; 80048; 80053; 80061; 81003; 82550; 82553; 82607; 82746; 82962; 83036; 83540; 83550; 83605; 83735; 83880; 84145; 84439; 84443; 84484; 85025; 85027; 85379; 87426; 90686; 93005; 93017; 93306; 94640; 94644; 97162; 99285; A9500; A9577; C9113; J1650; J1815; J1885; J2270; J2405; J2785; J2930; J3490; J7030

== ENCOUNTER 2022-11-13 14:21 | Emergency (ER) | payer MEDICAID ==
[~2022-11-13] VITALS: Ht 167.6 cm; Wt 77.0 kg
[2022-11-13 14:22] VITALS: O2SAT 92
[2022-11-13] MEDS ORDERED: MAGNESIUM/ALUMINUM HYDROXIDE/SIMETHICONE 30ML UDC PO STA (14:30)
[2022-11-13] MEDS ORDERED: GLUCAGON,HUMAN RECOMBINANT 1MG/VIAL IV ONE (14:30)
[2022-11-13] MEDS ORDERED: SODIUM CHLORIDE 0.9% 1,000 ML IV ONE (14:30)
[2022-11-13] MEDS ORDERED: ONDANSETRON HCL 4MG/2ML INJ IV STA (14:30)
[2022-11-13] MEDS ORDERED: DICYCLOMINE 10 MG/5 ML ORAL SYR PO STA (14:30)
[2022-11-13 15:39] LABS: BASOPHILS % 0.7 % (0.0-2.0); EOSINOPHILS % 11.1 % (0.0-5.0); HEMATOCRIT. 34.4 % (42.0-52.0); HEMOGLOBIN. 11.4 g/dL (14.0-18.0); LYMPHOCYTES % 17.8 % (20.0-50.0); MEAN CORPUSCULAR HEMOGLOBIN 27.4 pg (28.0-32.0); MEAN CORPUSCULAR HGB CONC 33.1 g/dL (31.0-37.0); MEAN CORPUSCULAR VOLUME 82.8 fL (80.0-94.0); MONOCYTES % 5.6 % (2.0-8.0); NEUTROPHILS % 64.8 % (40.0-76.0); PLATELET 265 x1000/uL (130-400); RED BLOOD CELL COUNT 4.15 mill/uL (4.7-6.1); WHITE BLOOD COUNT 5.9 x1000/uL (4.5-11.0)
[2022-11-13 15:42] LABS: CHLORIDE 103 mEq/L (98-107); INDEX HEMOLYSI 1 (1-3); INDEX ICTERIC 1 (1-4); INDEX LIPEMIC 1 (1-3); POTASSIUM 3.8 mEq/L (3.5-5.1); SODIUM 137 mEq/L (136-145)
[2022-11-13 15:53] LABS: ALANINE AMINOTRANSFERASE 19 IU/L (13-61); ALBUMIN 3.6 g/dL (3.4-5.0); ASPARTATE AMINOTRANSFERASE 9 IU/L (15-37); BILIRUBIN TOTAL 0.3 mg/dL (0.1-1.0); CALCIUM 9.5 mg/dL (8.5-10.1); CARBON DIOXIDE 30 mEq/L (21-32); CREATININE 0.7 mg/dL (0.6-1.3); GLUCOSE 199 mg/dL (70-105); NT PRO B-TYPE NATRIURETIC PEP 130 pg/mL (5-125); PROTEIN TOTAL 7.1 g/dL (6.0-8.3); TROPONIN I HIGH SENSITIVITY 6 ng/L (<78); UREA NITROGEN BLOOD 7 mg/dL (7-21)
[2022-11-13 16:31] VITALS: BP 134/58; PULSE 83; RESP 16; TEMP 98
== END 2022-11-13 16:46 | disposition home or self-care (01) ==
LOC: ER 14:21
DX: R13.10 Dysphagia, unspecified (principal); I11.0 Hypertensive heart disease with heart failure; I50.9 Heart failure, unspecified; J45.909 Unspecified asthma, uncomplicated; E78.00 Pure hypercholesterolemia, unspecified; Z79.899 Other long term (current) drug therapy
CPT/HCPCS: 80053; 83880; 85025; 84484; 36415; 71045; 93005; 96361; 96374; 96375; 99285; J1610; J2405; J7030; Z7610 ×3